=== PATIENT | female | born 1970 ===

== ENCOUNTER 2019-04-08 09:44 | Day surgery (SDC) | payer OTHER ==
[2019-03-18 11:13] VITALS: BMI 25.9
[2019-04-08 11:53] VITALS: BP 117/81; PULSE 79; RESP 20; TEMP 98.3; O2SAT 98
== END 2019-04-08 15:30 | disposition home or self-care (01) ==
LOC: C.LAB 09:44 → C.SDS 09:44 → C.LAB 09:45 → C.SDS 09:45 → EDSTATUS 13:00 → C.SDS 15:30
PROVIDERS: ATTEND Obstetrics & Gynecology
DX: R10.2 Pelvic and perineal pain (principal); N93.9 Abnormal uterine and vaginal bleeding, unspecified
CPT/HCPCS: J1642; LWBS0

== ENCOUNTER 2019-04-26 05:52 | Observation (INO) | payer OTHER ==
[2019-04-26 06:31] VITALS: BMI 29.2
[2019-04-26] MEDS ORDERED: Sodium Chloride 0.9% 0 ML IV ONE (07:34)
[2019-04-26] MEDS ORDERED: Bupivacaine HCl 0.25% PF (10 ml) Inj ONE (07:34)
[2019-04-26] MEDS ORDERED: ceFAZolin 1 gm in NS 2 GM/200 ML BAG IVPB ONE (07:35)
[2019-04-26] MEDS ORDERED: Lidocaine/Epinephrine 1% 1:100000 10 ML IJ ONE (07:35)
[2019-04-26] MEDS ORDERED: Midazolam 2 MG/2 ML VIAL ONE (07:44)
[2019-04-26] MEDS ORDERED: Propofol 10 mg/ml Inj (20 ML) ONE (07:44)
[2019-04-26 07:51] LABS: BASO # 0.1 K/uL (0.0-0.2); EOS # 0.3 K/uL (0.0-0.7); EOS % 4.7 % (0.0-4.0); HEMOGLOBIN 12.8 g/dL (11.0-16.0); LYMPH # 2.6 K/uL (1.0-4.3); MEAN CELL VOLUME 91.5 fL (81.0-99.0); MEAN CORPUSCULAR HEMOGLOBIN 32.1 pg (27.0-31.0); MEAN CORPUSCULAR HGB CONC 35.1 g/dL (33.0-37.0); MEAN PLATELET VOLUME 8.9 fL (7.2-11.7); MONO # 0.6 K/uL (0.0-0.8); MONO % 10.2 % (0.0-10.0); NEUT # 2.2 K/uL (1.8-7.0); NEUT % 39.1 % (50.0-75.0); RBC 3.98 Mil/uL (3.80-5.20); RED CELL DISTRIBUTION WIDTH 13.3 % (11.5-14.5); WHITE BLOOD COUNT 5.7 K/uL (4.8-10.8)
[2019-04-26 08:05] LABS: ALB/GLOB RATIO 1.5 (1.0-2.1); ALBUMIN 3.8 g/dL (3.5-5.0); ALT/SGPT 23 U/L (9-52); AST/SGOT 27 U/L (14-36); BLOOD UREA NITROGEN 7 mg/dL (7-17); CALCIUM 8.7 mg/dl (8.6-10.4); GFR NON-AFRICAN AMERICAN > 60
[2019-04-26] MEDS ORDERED: metroNIDAZOLE IV 500 mg/100 ml 500 MG/100 ML BAG ONE (08:32)
[2019-04-26] MEDS ORDERED: Rocuronium 10 mg/ml (5 ml) ONE (08:37)
[2019-04-26] MEDS ORDERED: DiphenhydrAMINE 50 mg/ml Inj IVP PRN ×2 (09:18→11:17)
[2019-04-26] MEDS ORDERED: Albuterol 0.083% Inhal Sol (2.5 mg/3 mL) UD INH PRN (10:01)
[2019-04-26] MEDS ORDERED: Neostigmine 1:1000 (1 mg/ml) Inj ONE (10:57)
[2019-04-26] MEDS: HYDROmorphone 0.5 mg/0.5 ml ISec IVP PRN ×5 (11:52→14:55)
[2019-04-26] MEDS ORDERED: Lactated Ringer's 1,000 ML IV SCH (12:45)
[2019-04-26] MEDS ORDERED: HYDROmorphone 0.5 mg/0.5 ml ISec IVP PRN (14:48)
[2019-04-26] MEDS ORDERED: cefOXitin IV 1 gm in Dextrose 1 GM/50 ML BAG IVPB SCH (15:00)
[2019-04-26] MEDS: DiphenhydrAMINE 50 mg/ml Inj IVP PRN ×2 (17:23→21:37)
[2019-04-26] MEDS: cefOXitin 1 GM in Sodium Chloride 0.9% 100 ML IV SCH (19:40)
[2019-04-26] MEDS ORDERED: Simethicone 80 mg Chewtab PO PRN (19:54)
[2019-04-26 20:34] VITALS: RESP 18
--- NOTE | 2019-04-26 20:37 | OP ---
PROCEDURE DATE: 04/26/2019 PREOPERATIVE DIAGNOSES: 1. Possible extensive peritoneal adhesions status post multiple previous operations. 2. Fibroid uterus. 3. Abnormal uterine bleeding. POSTOPERATIVE DIAGNOSES: 1. Possible extensive peritoneal adhesions status post multiple previous operations. 2. Fibroid uterus. 3. Abnormal uterine bleeding. PROCEDURE DONE: Diagnostic laparoscopy. SURGEON: Juels Cardoso MD FIELD FOREMAN: EDUARDO Garnica TYPE OF ANESTHESIA: General endotracheal tube anesthesia. ESTIMATED BLOOD LOSS: None. COMPLICATIONS: None. INTRAOPERATIVE FINDINGS: The patient had very minimal adhesions and the uterus appeared to be completely free from the colon as well as the small bowel and no adhesiolysis was done. DESCRIPTION OF PROCEDURE: On intraoperative steps, this is a 48-year-old female who was undergoing robotic hysterectomy by Dr. Rita Patel and the patient was also seen by me in office for possible adhesiolysis because of multiple previous operations including three C-sections, one colon resection, ilial resection as well as a cholecystectomy and the patient consented for the robotic enterolysis and lysis of adhesion, brought to the OR, placed supine on the operating table. After induction of anesthesia, the abdomen was prepped and draped in the usual sterile fashion. did the ASSISTANT LOAN PROCESSOR part of the procedure in the beginning part of the operation and now using the open technique, the peritoneal cavity was entered, pneumo was created and the patient was found to have very few omentalization in the anterior abdominal wall and uterus appeared to be completed free from adhesions and now the procedure was continued by . Up to this part of the procedure there was no complication. The patient tolerated the procedure well. Jules Cardoso MD
[2019-04-26 21:13] VITALS: O2SAT 98
[2019-04-27] MEDS ORDERED: guaiFENesin 100 mg/5 ml Syrup UD PO PRN (00:48)
[2019-04-27] MEDS: DiphenhydrAMINE 50 mg/ml Inj IVP PRN ×2 (01:46→05:50)
[2019-04-27] MEDS: cefOXitin 1 GM in Sodium Chloride 0.9% 100 ML IV SCH (02:48)
[2019-04-27 04:37] VITALS: TEMP 98
--- NOTE | 2019-04-27 06:53 | OP ---
PROCEDURE DATE: 04/26/2019 SURGEON: Madeline Patel MD [employer] OPERATOR: EDUARDO Garnica ANESTHESIA: General endotracheal. PREOPERATIVE DIAGNOSES: Abnormal uterine bleeding, pelvic pain, bladder pain, pelvic pressure, adhesions, endometriosis. POSTOPERATIVE DIAGNOSIS: Abnormal uterine bleeding, pelvic pain, bladder pain, pelvic pressure, adhesions, endometriosis, retroperitoneal fibrosis, ureteral fibrosis, and omental adhesions. PROCEDURES PERFORMED: Total robotic hysterectomy, bilateral salpingo-oophorectomy, cystoscopy, bilateral ureteral catheterizations, bilateral ureterolysis, lysis of adhesions with more than 250 g of uterus. ESTIMATED BLOOD LOSS: 300 mL. BLOOD PRODUCTS: None. COMPLICATIONS: None. URINE OUTPUT: 700 mL. OPERATIVE FINDINGS: Enlarged uterus, anteverted with dense bladder adhesions noted in the anterior abdominal wall. Right ovary with endometriosis right sidewall in which bilateral ureterolysis was performed adherent to the right fallopian tube, left ovary abnormally adherent to the left pelvic sidewall. INTRAOPERATIVE CONSULT: Jules Cardoso MD, General Surgery DESCRIPTION OF PROCEDURE: The patient was taken to the operating room where she was given general anesthesia. Once it was found to be adequate, she was placed on the operating table in dorsal supine position with legs supported using stirrups. The patient was then prepped and draped in the usual sterile fashion. Time-out was performed to confirm correct patient and correct procedure. Bimanual exam was performed with above-mentioned findings. A cystoscope was then inserted in the urethra which there was normal-appearing dome of the bladder and trigone. Bilateral ureteral jets were noted. Bilateral ureteral catheters were then inserted, and 5 mL of IC green was then inserted on either side. Following this, the cystoscope was then removed and a Anderson was inserted. This patient's legs were repositioned. Attention was then turned to the abdomen in which a 5-mm skin incision was made in the left upper quadrant by General Surgery, and the skin was dissected down to the layer of fascia. The 5-mm laparoscope was then inserted under direct visualization with careful penetration into the appropriate layers with good hemostasis noted. The abdomen was then insufflated with normal opening pressure to 15 mmHg. Upon visual inspection, there were omental adhesions noted. Dense bladder adhesions and pelvic lateral side wall noted. Please refer to General Surgery consult note for separate dictation. Following this, a supraumbilical 8-mm skin incision was made after introduction of 0.25% Marcaine with epinephrine. An 8-mm laparoscopic trocar was then inserted under direct visualization. There was good hemostasis noted. Following this, an 8-mm skin incision and port was placed in the right and left lower quadrant, and there was a 5-mm port. The patient was then placed in Trendelenburg position to remove the bowel out of the operative field. The robotic da Triston device was then docked as per the appropriate manufacture protocol. A monopolar device was then used in arm-3. The endoscope was targeted in arm-2, and a vessel seater was placed in arm-1. Following this, the bladder adhesions were carefully dissected using the monopolar device, which took one hour. After careful dissection, it was noted that there were extensive ureteral adhesions noted in the pelvic sidewall in which retroperitoneal fibrosis was carefully dissected using the maneuver. The IP ligament was identified on either side, carefully dissected after dissecting of the ureter, carried off the mesosalpinx up to the level of the round and utero-ovarian ligaments. Endometriosis was carefully resected upon removal of the adnexa. Both ureters were carefully dissected down to the pelvic sidewall, and the fibrosis was removed to help prevent ureteral injury. Following this, the anterior portion of the broad ligament was then inserted and carried down to the bladder flap, which was pushed down in a way from my anterior colpotomy. The uterine arteries were carefully dissected and ligated using the LigaSure device. There were anterior uterine wall adhesions noted to the anterior abdominal wall, which were carefully dissected. There were also omental adhesions noted, which were carefully dissected out. After the uterine arteries were cauterized and all the collaterals were removed, the endometriosis had been carefully resected after extensive dissection and lysis. Posterior colpotomy was performed using the monopolar device up to the level of the . The colpotomy was then carried down posterior to anterior circumferentially. Following this, the specimen was freed and removed through the vagina in addition with both adnexa. All specimens have been removed, and the vagina had been packed. Following this, the abdomen was thoroughly irrigated and inspected with good hemostasis noted. An UR-6 V-Loc needle was introduced and the vaginal cuff was reapproximated and closed noting to be careful to avoid injury to the ureter once the IC green was used, and there was noted to out of operative field. After the vaginal cuff as I mentioned has been closed, there was good hemostasis upon careful inspection and after irrigation. Following this, the instruments were then removed under direct visualization including the ports, and there was good hemostasis noted. The supraumbilical fascial incision was closed including UR-6 needle. After the abdomen was desufflated, the skin was reapproximated with a 4-0 Monocryl. The abdomen was prepped and cleaned. Steri-Strips and island dressings were placed to all the dressings. Following this, the Anderson catheter was removed and the cystoscope was re-introduced, and bilateral ureteral jets were noted. A new Anderson catheter was then inserted. At the end of the procedure, all needle, sponge and instrument counts were noted to be correct x2. The patient tolerated the procedure well and was transferred to the recovery room in stable condition. Madeline Patel MD
[2019-04-27 08:17] LABS: BASO % 0.1 % (0.0-2.0); MONO # 0.5 K/uL (0.0-0.8); MONO % 4.1 % (0.0-10.0); NEUT # 10.7 K/uL (1.8-7.0)
[2019-04-27 08:22] LABS: LYMPH # 1.9 K/uL (1.0-4.3); LYMPH % 14.3 % (20.0-40.0); MEAN CELL VOLUME 90.8 fL (81.0-99.0); MEAN CORPUSCULAR HEMOGLOBIN 31.7 pg (27.0-31.0); MEAN CORPUSCULAR HGB CONC 34.9 g/dL (33.0-37.0); MEAN PLATELET VOLUME 8.9 fL (7.2-11.7); NEUT % 81.5 % (50.0-75.0); RBC 3.36 Mil/uL (3.80-5.20); RED CELL DISTRIBUTION WIDTH 13.1 % (11.5-14.5)
[2019-04-27 08:24] LABS: WHITE BLOOD COUNT 13.2 K/uL (4.8-10.8)
[2019-04-27 08:25] LABS: HEMOGLOBIN 10.7 g/dL (11.0-16.0)
[2019-04-27 08:45] LABS: ALB/GLOB RATIO 1.5 (1.0-2.1); ALBUMIN 3.9 g/dL (3.5-5.0); ALT/SGPT 53 U/L (9-52); AST/SGOT 53 U/L (14-36); BLOOD UREA NITROGEN 8 mg/dL (7-17); CALCIUM 9.5 mg/dl (8.6-10.4); GFR NON-AFRICAN AMERICAN > 60
[2019-04-27 09:30] VITALS: BP 98/67; PULSE 83
--- NOTE | 2019-04-27 09:57 | CP.PCM.DIS ---
Provider - Provider Date of Admission: 04/26/19 12:39 Attending physician: Madeline Patel MD Primary care physician: Dr. Madeline Patel (STAFF MIDWIFE/APPRENTICESHIP DIRECTOR surgeon) Consults: DR Jules Cardoso (gen surgery) Time Spent in preparation of Discharge (in minutes): 43 Diagnosis - Discharge Diagnosis (1) Status post hysterectomy with oophorectomy Status: Acute Comment: See hospital course for full details (2) Deep venous thrombosis of upper extremity Status: Active Comment: Chronic condition: patient given instructions to restart NOAC when she returned home (3) Crohn disease Status: Acute Comment: chronic condition; has required surgical resetion in past Hospital Course - Lab Results Lab Results: Most Recent Lab Values WBC 13.2 K/uL (4.8-10.8) H D 04/27/19 08:06 RBC 3.36 Mil/uL (3.80-5.20) L 04/27/19 08:06 Hgb 10.7 g/dL (11.0-16.0) L D 04/27/19 08:06 Hct 30.5 % (34.0-47.0) L 04/27/19 08:06 MCV 90.8 fL (81.0-99.0) 04/27/19 08:06 MCH 31.7 pg (27.0-31.0) H 04/27/19 08:06 MCHC 34.9 g/dL (33.0-37.0) 04/27/19 08:06 RDW 13.1 % (11.5-14.5) 04/27/19 08:06 Plt Count 252 K/uL (130-400) 04/27/19 08:06 MPV 8.9 fL (7.2-11.7) 04/27/19 08:06 Neut % (Auto) 81.5 % (50.0-75.0) H 04/27/19 08:06 Lymph % (Auto) 14.3 % (20.0-40.0) L 04/27/19 08:06 Lyman % (Auto) 4.1 % (0.0-10.0) 04/27/19 08:06 Eos % (Auto) 0.0 % (0.0-4.0) 04/27/19 08:06 Baso % (Auto) 0.1 % (0.0-2.0) 04/27/19 08:06 Neut # (Auto) 10.7 K/uL (1.8-7.0) H 04/27/19 08:06 Lymph # (Auto) 1.9 K/uL (1.0-4.3) 04/27/19 08:06 Lyman # (Auto) 0.5 K/uL (0.0-0.8) 04/27/19 08:06 Eos # (Auto) 0.0 K/uL (0.0-0.7) 04/27/19 08:06 Baso # (Auto) 0.0 K/uL (0.0-0.2) 04/27/19 08:06 Sodium 138 mmol/L (132-148) 04/27/19 08:06 Potassium 3.8 mmol/L (3.6-5.2) 04/27/19 08:06 Chloride 97 mmol/L (98-107) L 04/27/19 08:06 Carbon Dioxide 32 mmol/L (22-30) H 04/27/19 08:06 Anion Gap 12 (10-20) 04/27/19 08:06 BUN 8 mg/dL (7-17) 04/27/19 08:06 Creatinine 0.6 mg/dL (0.7-1.2) L 04/27/19 08:06 Est GFR ( Amer) > 60 04/27/19 08:06 Est GFR (Non-Af Amer) > 60 04/27/19 08:06 Random Glucose 130 mg/dL (65-105) H D 04/27/19 08:06 Calcium 9.5 mg/dl (8.6-10.4) 04/27/19 08:06 Total Bilirubin 0.6 mg/dL (0.2-1.3) 04/27/19 08:06 AST 53 U/L (14-36) H D 04/27/19 08:06 ALT 53 U/L (9-52) H D 04/27/19 08:06 Alkaline Phosphatase 44 U/L (38-126) 04/27/19 08:06 Total Protein 6.5 g/dL (6.3-8.3) 04/27/19 08:06 Albumin 3.9 g/dL (3.5-5.0) 04/27/19 08:06 Globulin 2.6 gm/dL (2.2-3.9) 04/27/19 08:06 Albumin/Globulin Ratio 1.5 (1.0-2.1) 04/27/19 08:06 Blood Type A POSITIVE 04/26/19 07:00 Antibody Screen Negative 04/26/19 07:00 - Hospital Course Hospital Course: On admission: Total robotic hysterectomy, bilateral salpingo-oopherectomy, bilateral ureterolysis, lysis of adhesions, performed on 04/26/19. Operative findings (summarized from Dr Anita Patel surgical note - please see full operative note): enlarged anteverted uterus with dense bladder adhesions in the anterior abdominal wall; right ovary with endometriosis/fibroids; left ovary adherent to left pelvic sidewall; right ureter adherent to right fallopian tube. Estimate blood loss of 300 ml. Garcia cath inserted at the end of the procedure. Patient tolerated procedure well and transferred to recovery in stable condition. Hospital course: Patient transferred to maternity floor for monitoring s/p surgical procedure. Patient tolerated voiding trial and garcia cath was removed. Patient seen and examined at bedside on the morning of 04/27/19. Patient stated she has been ambulating out of bed to the bathroom and around nursing floor. Pain located at surgical sites. Rated pain as 8-9/10, that is reduced to 2-3/10 on dilaudid HYDROGEN CELL TENDER. Patient stated she has tolerated diet, and has been urinating without difficulty. Admitted to passing gas, but denied bowel movement yet. Patient also given Cefoxitin 1gm Q8H after surgery, which she tolerated without difficulty. Patient given albuterol once for wheezing on 04/27/19 that passed after treatment. Patient denied SOB at time of discharge. Patient given Zofran twice during hospital course but denied nausea/vomiting at time of discharge. Discharge Instructions: Appt Thursday with at [place] office No exercise for 6-8 weeks Patient may restart home NOAC when she gets home Prescriptions for Percocet and Tylenol given at discharge (see discharge plan for full details) Discharge Exam - Head Exam Head Exam: ATRAUMATIC, NORMAL INSPECTION, NORMOCEPHALIC - Eye Exam Eye Exam: EOMI, Normal appearance, PERRL - ENT Exam ENT Exam: Mucous Membranes Moist - Neck Exam Neck exam: Full Rom - Respiratory Exam Respiratory Exam: Clear to PA & Lateral, NORMAL BREATHING PATTERN. absent: Wheezes - Cardiovascular Exam Cardiovascular Exam: REGULAR RHYTHM, +S1, +S2 - GI/Abdominal Exam GI & Abdominal Exam: Normal Bowel Sounds, Soft, Tenderness (appropriate at surgical sites (4 port sites covered with gauze) no drainage/erythema at sites) - Skin Additional comments: Right port-a-cath in place without erythema,edema, drainage of purulence/blood Discharge Plan - Discharge Medications Prescriptions: Acetaminophen [Non-Aspirin Pain Relief] 1,000 mg PO Q6H PRN 5 Days #40 tablet PRN Reason: Pain, Moderate (4-7) oxyCODONE/Acetaminophen [Percocet 5/325 mg Tab] 1 ea PO Q6H PRN 3 Days #12 tab PRN Reason: Pain, Severe (8-10) - Follow Up Plan Condition: GOOD Disposition: HOME/ ROUTINE Additional Instructions: Pt stable for discharge home per Dr Madeline Patel Pt should follow up with in her office in [place] on 05/02/19. She should also continue following up with her hem/onc for removal of her port-a-cath. If symptoms return or worsen (including but not limited to: intractable pain, chest pain, bleeding, shortness of breath) she should immediately return to the nearest emergency room. She may restart her home medications (including her home NOAC). She is advised not to exercise for 6-8 weeks. Prescribed medications: Acetaminophen 1000mg 1 tab by mouth every 6 hours NEEDED x 5 days (Disp # 40) Percocet 5/325mg 1 tab by mouth every 6 hours NEEDED (Disp # 12)
== END 2019-04-27 10:30 | disposition home or self-care (01) ==
LOC: C.SDS 05:52 → C.9P 12:39 → C.4M 16:00
PROVIDERS: ADMIT Obstetrics & Gynecology; ATTEND Obstetrics & Gynecology
DX: D25.9 Leiomyoma of uterus, unspecified (principal); N80.1 Endometriosis of ovary; N73.6 Female pelvic peritoneal adhesions (postinfective); I82.729 Chronic embolism and thrombosis of deep veins of unspecified upper extremity; Z79.01 Long term (current) use of anticoagulants; K50.90 Crohn's disease, unspecified, without complications; N13.5 Crossing vessel and stricture of ureter without hydronephrosis; N32.89 Other specified disorders of bladder
CPT/HCPCS: 31500; 36415; 49320; 58150; 80053; 85025; 86850; 86900; 88309; 94002; G0378; J0690; J0694; J1100; J1170; J1200; J2001; J2250; J2405; J2704; J2710; J3010; J7120